=== PATIENT | female | born 1995 | race Hispanic/Latino ===

== ENCOUNTER 2017-01-02 11:14 | Emergency (ER) | payer OTHER ==
[~2017-01-02] VITALS: Ht 152.4 cm; Wt 75.0 kg
[~2017-01-02 11:14] MED LIST: ALBUTEROL S2.5 MG/.5 IN; AMOXICILLIN500 MG OR; AMOXICILLIN500 MG PO; ANUCORT-HC25 MG RE; BACTRIM1 TAB PO; CEPHALEXIN500 M1 PO; CIPROFLOXACN500 MG PO; COLACE100 MG PO; DIFLUCAN150 MG PO; FERROUS SULF325 M1 PO; FIORICET PO; FLUZONE SPLT1 M1 IM; IBUPROFEN600 MG PO; INHALER IN; LAMICTAL25 M2 PO; LORTAB 7.57.5 MG PO; MACRODANTIN100 MG OR; MACRODANTIN100 MG PO; MECLIZINE HCL25 M1 PO; METROGEL VAG0.75 % VA; NASAL SPRAY 120.05 %; NITROFURANTN100 M1 PO; NO; ONDANSETRON ODT8 MG PO; ORTHO EVRA TD; PHENERGAN25 MG/TAB PO; PRENATA8 PO; PRENATAL1 TA1; PRENATAL1 TAB OR; PROCARDIA10 MG PO; TUBERSOL5 MG/0.1 M ID; TYLOPHEN500 MG PO; ZOFRAN ODT4 MG PO; ZOFRAN4 MG/TAB PO; ZYRTEC10 M3 OR; ZYRTEC10 MG PO
[2017-01-02 12:01] LABS: HEMATOCRIT 39.6 % (37.0-47.0); HEMOGLOBIN 13.2 g/dl (12.0-16.0); IMMATURE GRANULOCYTES 0.4 % (0.0-1.0); MEAN CELL VOLUME 86.7 fL CALC (80.0-100.0); MEAN CORPUSCULAR HGB 28.9 pG CALC (26.0-32.0); MEAN CORPUSCULAR HGB CONC 33.3 g/L CALC (32.0-36.0); NEUT# 5.76 thou/uL (2.00-7.15); RED BLOOD COUNT 4.57 mill/uL (4.20-5.60); RED CELL DISTRI WIDTH 12.4 % (11.5-15.5)
[2017-01-02 12:20] LABS: ALBUMIN 4.5 g/dL (3.2-5.0); ALKALINE PHOSPHATASE 78 u/l (38-126); ANION GAP 16 (6-22 (CALC)); BILIRUBIN, TOTAL 0.6 mg/dL (0.0-1.4); BUN 9 mg/dL (7-17); BUN/CREATININE RATIO 16 (12-20 (CALC)); CALCIUM 9.8 mg/dL (8.4-10.2); CARBON DIOXIDE 26 mmol/l (22-30); CHLORIDE 104 mmol/l (95-108); CREATININE 0.6 mg/dL (0.5-1.0); GFR > 60 ML/MIN (>=60 (CALC)); GFR FOR AFR.AMER. > 60 ML/MIN (>=60 (CALC)); GLUCOSE 91 mg/dL (65-105); POTASSIUM 3.9 mmol/l (3.5-5.1); SGOT/AST 18 u/l (14-36); SGPT/ALT 27 u/l (9-52); SODIUM 141 mmol/l (137-146); TOTAL PROTEIN 7.8 g/dL (6.3-8.2)
[2017-01-02 12:31] LABS: MYOGLOBIN 18 ng/mL (0 - 62)
[2017-01-02] MEDS ORDERED: NEXIUM40 M1 PO (14:27)
[2017-01-02 14:30] VITALS: BP 108/61
== END 2017-01-02 14:37 | disposition home or self-care (01) | DRG 313 ==
LOC: ED 11:14
PROVIDERS: Emergency Medicine
DX: R07.9 Chest pain, unspecified (principal); J45.909 Unspecified asthma, uncomplicated; R06.02 Shortness of breath

== ENCOUNTER 2017-03-24 12:10 | Emergency (ER) | payer OTHER ==
[~2017-03-24] VITALS: Ht 152.4 cm; Wt 79.0 kg
[~2017-03-24 12:10] MED LIST changes: +NEXIUM40 M1 PO
[2017-03-24] MEDS ORDERED: PROZAC10 MG PO (12:21)
[2017-03-24 13:20] VITALS: BP 129/77
== END 2017-03-24 13:20 | disposition home or self-care (01) | DRG 882 ==
LOC: ED 12:10
DX: F43.22 Adjustment disorder with anxiety (principal); J45.909 Unspecified asthma, uncomplicated; R07.9 Chest pain, unspecified

== ENCOUNTER 2017-10-02 16:41 | Emergency (ER) | payer OTHER ==
[~2017-10-02] VITALS: Ht 152.4 cm; Wt 76.8 kg
[~2017-10-02 16:41] MED LIST changes: +PROZAC10 MG PO
[2017-10-02] MEDS ORDERED: ZPAK PO (16:57)
[2017-10-02] MEDS ORDERED: TORADOL PO (17:11)
[2017-10-02] MEDS ORDERED: AMOXICILLIN500 MG PO (17:11)
[2017-10-02 17:12] VITALS: BP 112/58
== END 2017-10-02 17:17 | disposition home or self-care (01) | DRG 781 ==
LOC: ED 16:41
DX: O98.513 Other viral diseases complicating pregnancy, third trimester (principal); R50.9 Fever, unspecified; J06.9 Acute upper respiratory infection, unspecified; J40 Bronchitis, not specified as acute or chronic; R05 Cough; Z3A.30 30 weeks gestation of pregnancy

== ENCOUNTER 2018-07-15 11:51 | Emergency (ER) | payer SELFPAY ==
[~2018-07-15] VITALS: Ht 152.4 cm; Wt 75.3 kg
[~2018-07-15 11:51] MED LIST changes: +TORADOL PO; +ZPAK PO
[2018-07-15 12:48] LABS: HEMATOCRIT 40.5 % (37.0-47.0); HEMOGLOBIN 13.7 g/dl (12.0-16.0); IMMATURE GRANULOCYTES 0.2 % (0.0-5.0); MEAN CELL VOLUME 87.5 fL CALC (80.0-100.0); MEAN CORPUSCULAR HGB 29.6 pG CALC (26.0-32.0); MEAN CORPUSCULAR HGB CONC 33.8 g/L CALC (32.0-36.0); NEUT# 5.94 thou/uL (2.00-7.15); RED BLOOD COUNT 4.63 mill/uL (4.20-5.60); RED CELL DISTRI WIDTH 13.1 % (11.5-15.5)
[2018-07-15 12:49] LABS: URINE BILIRUBIN - DIPSTICK NEGATIVE (NEGATIVE); URINE BLOOD DIPSTICK NEGATIVE (NEGATIVE); URINE CLARITY CLEAR; URINE COLOR YELLOW; URINE GLUCOSE - DIPSTICK NEGATIVE (NEGATIVE); URINE KETONE 40 mg/dL (NEGATIVE); URINE LEUK ESTERASE NEGATIVE (NEGATIVE); URINE NITRITE - DIPSTICK NEGATIVE (Negative); URINE PROTEIN - DIPSTICK NEGATIVE (NEG-TRACE); URINE UROBILINOGEN - DIPSTICK 0.2 E.U./dL (0.2)
[2018-07-15 13:06] LABS: ALKALINE PHOSPHATASE 63 u/l (38-126); ANION GAP 12 (6-22 (CALC)); BILIRUBIN, TOTAL 0.6 mg/dL (0.0-1.4); BUN 7 mg/dL (7-17); BUN/CREATININE RATIO 15 (12-20 (CALC)); CARBON DIOXIDE 24 mmol/l (22-30); CHLORIDE 107 mmol/l (95-108); CREATININE 0.5 mg/dL (0.5-1.0); GFR > 60 ML/MIN (>=60 (CALC)); GFR FOR AFR.AMER. > 60 ML/MIN (>=60 (CALC)); POTASSIUM 3.9 mmol/l (3.5-5.1); SGOT/AST 19 u/l (14-36); SODIUM 139 mmol/l (137-146); TOTAL PROTEIN 7.4 g/dL (6.3-8.2)
[2018-07-15] MEDS ORDERED: ZOFRAN4 MG/TAB PO (13:17)
[2018-07-15 14:00] VITALS: BP 127/82
== END 2018-07-15 14:00 | disposition home or self-care (01) | DRG 392 ==
LOC: ED 11:51
PROVIDERS: Emergency Medicine
DX: R11.10 Vomiting, unspecified (principal); K58.9 Irritable bowel syndrome, unspecified

== ENCOUNTER 2019-03-06 22:23 | Emergency (ER) | payer OTHER ==
[~2019-03-06] VITALS: Ht 152.4 cm; Wt 77.0 kg
[2019-03-06 23:47] VITALS: BP 114/84
== END 2019-03-06 23:47 | disposition home or self-care (01) ==
LOC: ED 22:23
DX: S01.81XA Laceration without foreign body of other part of head, initial encounter (principal); S69.92XA Unspecified injury of left wrist, hand and finger(s), initial encounter; W01.0XXA Fall on same level from slipping, tripping and stumbling without subsequent striking against object, initial encounter; Y93.89 Activity, other specified; Y92.009 Unspecified place in unspecified non-institutional (private) residence as the place of occurrence of the external cause

== ENCOUNTER 2019-03-27 19:57 | Emergency (ER) | payer OTHER ==
[~2019-03-27] VITALS: Ht 152.4 cm; Wt 70.0 kg
[2019-03-27 21:07] LABS: URINE BLOOD DIPSTICK LARGE (NEGATIVE); URINE COLOR YELLOW; URINE GLUCOSE - DIPSTICK NEGATIVE (NEGATIVE); URINE KETONE NEGATIVE (NEGATIVE); URINE LEUK ESTERASE NEGATIVE (NEGATIVE); URINE NITRITE - DIPSTICK NEGATIVE (Negative); URINE PH 6.5 (4.5-8.0); URINE PROTEIN - DIPSTICK 30 mg/dL (NEG-TRACE); URINE SPECIFIC GRAVITY 1.025
[2019-03-27 21:11] LABS: URINE BILIRUBIN - DIPSTICK NEGATIVE (NEGATIVE)
[2019-03-27 21:11] LABS: HEMATOCRIT 41.3 % (37.0-47.0); HEMOGLOBIN 13.5 g/dl (12.0-16.0); IMMATURE GRANULOCYTES 0.4 % (0.0-5.0); MEAN CELL VOLUME 83.3 fL CALC (80.0-100.0); MEAN CORPUSCULAR HGB 27.2 pG CALC (26.0-32.0); MEAN CORPUSCULAR HGB CONC 32.7 g/L CALC (32.0-36.0); NEUT# 2.59 thou/uL (2.00-7.15); RED BLOOD COUNT 4.96 mill/uL (4.20-5.60); RED CELL DISTRI WIDTH 15.6 % (11.5-15.5)
[2019-03-27 21:15] LABS: URINE MUCUS MANY hpf (NONE-FEW); URINE SQUAMOUS EPITHELIAL CELL FEW EPI/hpf (0-FEW); URINE WBC 0-2 WBC/hpf (0-5)
[2019-03-27 21:17] LABS: ALBUMIN 4.4 g/dL (3.2-5.0); ALKALINE PHOSPHATASE 87 u/l (38-126); ANION GAP 11 (6-22 (CALC)); BILIRUBIN, TOTAL 0.9 mg/dL (0.0-1.4); BUN 8 mg/dL (7-17); BUN/CREATININE RATIO 14 (12-20 (CALC)); CARBON DIOXIDE 29 mmol/l (22-30); CHLORIDE 105 mmol/l (95-108); CREATININE 0.6 mg/dL (0.5-1.0); GFR > 60 ML/MIN (>=60 (CALC)); GFR FOR AFR.AMER. > 60 ML/MIN (>=60 (CALC)); POTASSIUM 3.2 mmol/l (3.5-5.1); SODIUM 142 mmol/l (137-146); TOTAL PROTEIN 8.1 g/dL (6.3-8.2)
[2019-03-27 21:18] LABS: SGOT/AST 62 u/l (14-36)
[2019-03-27 22:50] VITALS: BP 121/56
== END 2019-03-27 22:50 | disposition home or self-care (01) ==
LOC: ED 19:57
PROVIDERS: Family Medicine
DX: O86.4 Pyrexia of unknown origin following delivery (principal); O99.335 Smoking (tobacco) complicating the puerperium; F17.210 Nicotine dependence, cigarettes, uncomplicated; R51 Headache
CPT/HCPCS: Q9967

== ENCOUNTER 2019-09-17 | Emergency (ER) | payer OTHER ==
[~2019-09-17] MED LIST changes: +PROMETHAZINE12.5 MG PO; +TOPAMAX50 MG PO
[2019-09-17 00:57] LABS: URINE BILIRUBIN - DIPSTICK NEGATIVE (NEGATIVE); URINE BLOOD DIPSTICK NEGATIVE (NEGATIVE); URINE COLOR YELLOW; URINE GLUCOSE - DIPSTICK NEGATIVE (NEGATIVE); URINE KETONE NEGATIVE (NEGATIVE); URINE LEUK ESTERASE NEGATIVE (NEGATIVE); URINE NITRITE - DIPSTICK NEGATIVE (Negative); URINE PROTEIN - DIPSTICK NEGATIVE (NEG-TRACE); URINE SPECIFIC GRAVITY 1.025; URINE UROBILINOGEN - DIPSTICK 0.2 E.U./dL (0.2)
[2019-09-17 01:00] LABS: HEMATOCRIT 45.2 % (37.0-47.0); HEMOGLOBIN 14.7 g/dl (12.0-16.0); IMMATURE GRANULOCYTES 0.3 % (0.0-5.0); MEAN CORPUSCULAR HGB 29.6 pG CALC (26.0-32.0); MEAN CORPUSCULAR HGB CONC 32.5 g/L CALC (32.0-36.0); NEUT# 4.07 thou/uL (2.00-7.15); RED BLOOD COUNT 4.96 mill/uL (4.20-5.60); RED CELL DISTRI WIDTH 12.3 % (11.5-15.5)
[2019-09-17 01:01] LABS: MEAN CELL VOLUME 91.1 fL CALC (80.0-100.0)
[2019-09-17 01:04] LABS: BARBITURATES NEGATIVE (NEGATIVE); COCAINE NEGATIVE (NEGATIVE); METHADONE NEGATIVE (NEGATIVE); OXCYCODONE NEGATIVE (NEGATIVE); TETRAHYDROCANNABIONOL POSITIVE (NEGATIVE); TRICYLIC ANTIDEPRESSANTS NEGATIVE (NEGATIVE)
[2019-09-17 01:09] LABS: ALBUMIN 4.8 g/dL (3.2-5.0); ALKALINE PHOSPHATASE 62 u/l (38-126); BUN 10 mg/dL (7-17); BUN/CREATININE RATIO 19 (12-20 (CALC)); CHLORIDE 105 mmol/l (95-108); CREATININE 0.5 mg/dL (0.5-1.0); ETHYL ALCOHOL 0 mg/dl (0-30); GFR > 60 ML/MIN (>=60 (CALC)); GFR FOR AFR.AMER. > 60 ML/MIN (>=60 (CALC)); SGOT/AST 28 u/l (14-36); SODIUM 140 mmol/l (137-146); TOTAL PROTEIN 8.4 g/dL (6.3-8.2)
[2019-09-17 01:10] LABS: ANION GAP 17 (6-22 (CALC)); BILIRUBIN, TOTAL 0.5 mg/dL (0.0-1.4); CARBON DIOXIDE 22 mmol/l (22-30); POTASSIUM 3.9 mmol/l (3.5-5.1)
== END 2019-09-17 02:27 | disposition home or self-care (01) ==
PROVIDERS: Emergency Medicine
DX: F12.929 Cannabis use, unspecified with intoxication, unspecified (principal); F17.210 Nicotine dependence, cigarettes, uncomplicated

== ENCOUNTER 2020-03-10 16:48 | Emergency (ER) | payer OTHER ==
[~2020-03-10] VITALS: Ht 149.9 cm; Wt 82.0 kg
[2020-03-10 18:06] LABS: HEMATOCRIT 42.6 % (37.0-47.0); HEMOGLOBIN 14.3 g/dl (12.0-16.0); IMMATURE GRANULOCYTES 0.3 % (0.0-5.0); MEAN CELL VOLUME 87.8 fL CALC (80.0-100.0); MEAN CORPUSCULAR HGB 29.5 pG CALC (26.0-32.0); MEAN CORPUSCULAR HGB CONC 33.6 g/dL CAL (32.0-36.0); NEUT# 4.08 thou/uL (2.00-7.15); RED BLOOD COUNT 4.85 mill/uL (4.20-5.60); RED CELL DISTRI WIDTH 12.5 % (11.5-15.5)
[2020-03-10 18:23] LABS: ALBUMIN 4.9 g/dL (3.2-5.0); ALKALINE PHOSPHATASE 82 u/l (38-126); ANION GAP 13 (6-22 (CALC)); BILIRUBIN, TOTAL 0.6 mg/dL (0.0-1.4); BUN 14 mg/dL (7-17); BUN/CREATININE RATIO 31 (12-20 (CALC)); CARBON DIOXIDE 24 mmol/l (22-30); CHLORIDE 102 mmol/l (95-108); CREATININE 0.5 mg/dL (0.5-1.0); GFR > 60 ML/MIN (>=60 (CALC)); GFR FOR AFR.AMER. > 60 ML/MIN (>=60 (CALC)); LIPASE 117 u/l (23-300); SGOT/AST 29 u/l (14-36); SODIUM 135 mmol/l (137-146)
[2020-03-10] MEDS ORDERED: PROCTOZONE-HC2.5 % RE (20:11)
[2020-03-10 20:30] VITALS: BP 118/60
== END 2020-03-10 20:30 | disposition home or self-care (01) ==
LOC: ED 16:48
PROVIDERS: Family Medicine
DX: K62.5 Hemorrhage of anus and rectum (principal); K64.4 Residual hemorrhoidal skin tags; M54.5 Low back pain; K58.9 Irritable bowel syndrome, unspecified; F17.200 Nicotine dependence, unspecified, uncomplicated
CPT/HCPCS: Q9967

== ENCOUNTER 2021-06-11 17:09 | Emergency (ER) | payer OTHER ==
[~2021-06-11] VITALS: Ht 149.9 cm; Wt 70.0 kg
[~2021-06-11 17:09] MED LIST changes: +PROCTOZONE-HC2.5 % RE
[2021-06-11] MEDS ORDERED: PRENATA3 PO (17:45)
[2021-06-11 17:50] LABS: URINE BILIRUBIN - DIPSTICK NEGATIVE (NEGATIVE); URINE BLOOD DIPSTICK NEGATIVE (NEGATIVE); URINE COLOR YELLOW; URINE GLUCOSE - DIPSTICK NEGATIVE (NEGATIVE); URINE KETONE NEGATIVE (NEGATIVE); URINE LEUK ESTERASE NEGATIVE (NEGATIVE); URINE PROTEIN - DIPSTICK NEGATIVE (NEG-TRACE); URINE SPECIFIC GRAVITY 1.025
[2021-06-11 17:59] LABS: URINE NITRITE - DIPSTICK NEGATIVE (Negative)
[2021-06-11] MEDS ORDERED: PRENATAL MULTI1 CAP PO (18:45)
[2021-06-11 19:03] VITALS: BP 122/71
== END 2021-06-11 19:04 | disposition home or self-care (01) ==
LOC: ED 17:09
PROVIDERS: Emergency Medicine
DX: O26.891 Other specified pregnancy related conditions, first trimester (principal); R10.32 Left lower quadrant pain; O99.331 Smoking (tobacco) complicating pregnancy, first trimester; F17.200 Nicotine dependence, unspecified, uncomplicated; Z3A.01 Less than 8 weeks gestation of pregnancy